=== PATIENT | female | born 1985 | race Caucasian/White ===

== ENCOUNTER 2023-09-05 21:50 | Emergency (ER) | payer BC, OTHER ==
[2023-09-05 21:55] VITALS: BP 127/78; PULSE 71; RESP 18; TEMP 98.5; BMI 27.8
[2023-09-06] MEDS ORDERED: LIDOCAINE VISCOUS 2% ORAL/TOP 15 ML UNIT-DOSE CUP ONE (00:18)
[2023-09-06] MEDS ORDERED: ONDANSETRON *ODT* 4 MG TABLET ONE (00:18)
[2023-09-06] MEDS: ONDANSETRON *ODT* 4 MG TABLET SL ONE (00:30)
[2023-09-06] MEDS: LIDOCAINE VISCOUS 2% ORAL/TOP 15 ML UNIT-DOSE CUP MM ONE (00:51)
== END 2023-09-06 01:45 | disposition home or self-care (01) ==
LOC: JER 21:50
DX: R11.2 Nausea with vomiting, unspecified (principal); R09.89 Other specified symptoms and signs involving the circulatory and respiratory systems; R07.0 Pain in throat; R06.9 Unspecified abnormalities of breathing
CPT/HCPCS: 70360-TC-FY; 70490-TC; 99284-25; Q0162

== ENCOUNTER 2024-12-05 11:28 | Emergency (ER) | payer BC, OTHER ==
[2024-12-05 11:46] VITALS: BMI 24.1
[2024-12-05 13:14] LABS: ABSOLUTE IMMATURE GRANULOCYTES 0.01 x10^3/uL (0.0-0.031); BASOPHILS # 0.04 x10^3/uL (0.01-0.08); EOSINOPHIL % 1.7 % (0.7-5.8); EOSINOPHILS # 0.07 x10^3/uL (0.04-0.36); HEMATOCRIT 41.3 % (34.1-44.9); HEMOGLOBIN 13.3 g/dL (11.2-15.7); MCHC 32.2 g/dl (32.2-35.5); MEAN CELL VOLUME 88.6 fl (79.4-94.8); MONOCYTE # 0.32 x10^3/uL (0.24-0.86); MONOCYTE % 7.9 % (4.7-12.5); PLATELET COUNT 364 x10^3/uL (182-369); RDW 13.1 % (12.1-16.8)
[2024-12-05 13:31] LABS: ACTIVATED PTT 34.9 SECONDS (25.2-36.5); INR 1.07 (0.83-1.09); PROTHROMBIN TIME (PATIENT) 11.8 SEC (9.7-13.0)
[2024-12-05 13:33] LABS: POTASSIUM 4.7 mmol/L (3.5-5.1)
[2024-12-05 13:37] LABS: ALBUMIN 3.6 g/dl (3.4-5.0); BLOOD UREA NITROGEN 13.5 mg/dL (7-18); CALCIUM 9.4 mg/dL (8.5-10.1)
[2024-12-05 13:40] LABS: CREATININE 0.6 mg/dL (0.55-1.3)
[2024-12-05 13:41] LABS: BILIRUBIN,TOTAL 0.6 mg/dL (0.2-1); TOT PROT 7.3 g/dl (6.4-8.2)
[2024-12-05 14:28] LABS: HCV DIAGNOSTIC IN-HOUSE W/RFLX NON-REACTIVE (NONREACTIVE)
[2024-12-05 14:29] LABS: HIV INTERPRETATION NEGATIVE (NEGATIVE)
[2024-12-05 18:29] VITALS: BP 108/63; PULSE 77; RESP 20; TEMP 97.5
== END 2024-12-05 18:31 | disposition home or self-care (01) ==
LOC: JER 11:28
DX: R07.2 Precordial pain (principal); R00.2 Palpitations
CPT/HCPCS: 36415; 71046-TC-FY; 80053; 83735; 84439; 84443; 84484; 85025; 85610; 85730; 86803; 87389; 93005; 93010; 99285-25